=== PATIENT | female | born 1960 | race Caucasian/White ===

== ENCOUNTER 2020-05-14 08:09 | Emergency (ER) | payer OTHER, SELFPAY ==
[2020-05-14 08:10] VITALS: BP 148/87; PULSE 84; RESP 16; TEMP 36.4; O2SAT 100; BMI 26.6
--- NOTE | 2020-05-14 08:25 | VDLE_ITS ---
Reason For Study: Pain RIGHT LEFT GSV is normal. CFV is compressible, spontaneous, phasic, CFV is compressible, spontaneous, phasic, competent, and demonstrates normal competent and demonstrates normal augmentation. augmentation. FV is compressible, spontaneous, phasic, competent and demonstrates normal augmentation. POP V is compressible, spontaneous, phasic, competent and demonstrates normal augmentation. T/P Trunk is compressible. PTV is compressible. RT PerV is compressible. Procedure Exam performed portable in ED. A preliminary report was called and/or faxed to Dr. Ibrahim. Interpretation Summary There is no evidence of right lower extremity deep vein thrombosis. Right great saphenous vein appears patent and compressible segmentally. Normal flow patterns left common femoral vein. Ordering Physician: Chalino Ibrahim Performed By: Laurie Pinedo, KATY, RVT
--- NOTE | 2020-05-14 08:26 | ED.VIS.LOWEX ---
History of Present Illness Chief Complaint: Lower Extremity Injury Detail of Chief Complaint: pain right leg Informant: Patient Onset: Days - several Context: Sudden Onset - can't remember context; doesn't remember injuring it Timing: Continuous Quality of Pain: Aching Location: anterior right lower leg Current Severity: Severe Maximum Severity: Severe Worsened by: walking Relieved by: remaining still Associated Symptoms: Negative for: Parasthesia, Weakness, Loss of Funtion Narrative: Patient has had progressively worsening pain in her right baig. She states she works for the local [employer] and is on her feet doing a lot of walking back and forth and pushing and pulling things all night. She does not member injuring this. She admits she is having some swelling in both of her legs but it has been chronic and she notes no changes recently. She denies any fevers, chills, chest pain, shortness of breath, no history of DVT or PE, no history of recent long travel/immobilization/hospitalization/surgery. She denies any redness or skin changes or wounds. She states it is really unusual, the pain kind of has come out of nowhere and gotten worse. Past Medical History - Allergies and Home Meds Allergies/Adverse Reactions: Allergies No Known Allergies Allergy (Verified 05/14/20 08:10) Primary Care Physician: Care Physician,No Primary [Primary Care Provider] - Past Medical History: None Smoking Status: Never smoker Drugs: None Review of Systems General: Denies: Chills, Fever, Sweats Eyes: Denies: Visual changes - bilaterally, Diplopia ENT: Denies: Rhinorrhea, Sore throat Cardiovascular: Denies: Chest pain, Palpitations Respiratory: Denies: Dyspnea, Cough, Dyspnea on exertion Gastrointestinal: Denies: Abdominal pain, Nausea, Vomiting, Diarrhea, Melena, Hematochezia Genitourinary: Denies: Dysuria, Hematuria, Frequency Musculoskeletal: Reports: Swelling, Extremity Pain. Denies: Back pain Skin: Denies: Rash, Wounds Neurological: Denies: Headache, Weakness, Numbness Physical Exam Vital Signs/Narrative: Vital Signs Temp Pulse Resp BP Pulse Ox 05/14/20 08:10 97.5 F L 84 16 148/87 H 100 Inital Vital Signs reviewed: Yes - Extremity Exam Right Knee: Negative for: Limited ROM Right Tib fib: - - Very tender right distal tibia including medial aspect. Pain worsens with active dorsiflexion of the foot. It does not worsen when I passively stretch the anterior compartment with plantarflexion of the foot. The overlying skin is normal-appearing throughout the right lower extremity. Right Ankle: Negative for: Limited ROM General: Well nourished, Well developed, - Head: Normocephalic, Atraumatic Eyes: Perrl, EOMI Cardiovascular: - - 2+/4 bilateral posterior tibial pulses Skin: Normal color, No rash, No Trauma, - - No palpable subcutaneous emphysema right lower extremity. No wounds or nidus for infection. Normal-appearing skin right lower extremity and contralateral left lower extremity. Neurological: Alert, Oriented x3, Cranial nerves II-XII grossly intact, Normal Strength, Normal Sensation Psychological: Normal affect, Normal Mood Diagnostic/Tx/Re-eval - Medical Decision Making Venous Doppler ultrasound of the right lower extremity was obtained and was normal, unremarkable. In discussing with the electronics technician, she did not see anything else unusual that could explain the patient's pain. I obtained x-rays as well, on my interpretation 2 view showed no bony abnormality and no subcutaneous air/gas to suggest some type of necrotizing infection. Visual inspection is unremarkable. Her compartments are all soft, and she does not have any signs or symptoms of compartment syndrome. I suspect that this is some type of overuse injury, the differential includes muscular, tendon, ligament injury, stress fracture, unable to exclude small tears as well which I discussed with the patient. Prior to discharge in discussing all of this, she states it seems to be hurting more in her calf muscle when she dorsiflexes, on exam it was more anterior compartment pain that she was having when she dorsiflex but consistent with the absence of compartment syndrome, she did not have significant anterior compartment pain with passive stretch of it. I reassured her, gave her crutches so that she can more easily rested and continue to go to work, will place her on anti-inflammatories and advised close outpatient follow-up. She does not have a primary care doctor so I referred her to the next doctor on the unassigned list. ED Disposition - Plan for ED Patient: Disposition: Home or Assisted Living Diagnosis: Musculoskeletal pain of right lower extremity Instructions: ED Muscle Strain, Extremity Prescriptions: Naproxen [Naprosyn] 500 mg PO BID PRN #20 tablet Prescription Printed Referrals: Jaun Kumar MD [NON-STAFF] - 1 Week if not improving
--- NOTE | 2020-05-14 08:58 | RAD_ITS ---
STUDY: X-RAY - RIGHT TIBIA AND FIBULA REASON FOR EXAM: Female, 59 years old. Right lower leg pain starting yesterday. Pain is in the baig area. No known injury. TECHNIQUE: 2 view(s) of the tibia and fibula were obtained. COMPARISON: None. FINDINGS: Normal visualized tibia. Normal visualized fibula. The soft tissue structures are unremarkable. RAD/Tibia & Fibula 2 Views IMPRESSION: Normal x-ray examination of the tibia and fibula. Electronically Signed: Jean Figueroa MD at 9:42 EDT , Service support ,
[2020-05-14] MEDS: Naproxen 500 MG Tablet PO (10:13)
== END 2020-05-14 10:14 | disposition home or self-care (01) ==
PROVIDERS: Emergency Provider Emergency Medicine
DX: M79.661 Pain in right lower leg (principal); M79.89 Other specified soft tissue disorders
CPT/HCPCS: 73590; 93971; 99284

== ENCOUNTER 2022-05-19 14:21 | Emergency (ER) | payer OTHER, SELFPAY ==
[2022-05-19 14:22] VITALS: BP 179/88; PULSE 91; RESP 18; TEMP 36.6; O2SAT 99; BMI 27.5
--- NOTE | 2022-05-19 14:24 | EKG12_ITS ---
Test Reason : CP Blood Pressure : / mmHG Vent. Rate : 082 BPM Atrial Rate : 082 BPM P-R Int : 176 ms QRS Dur : 082 ms QT Int : 374 ms P-R-T Axes : 055 -05 043 degrees QTc Int : 436 ms Poor data quality, interpretation may be adversely affected Normal sinus rhythm Normal ECG Confirmed by PADDY SIDDIQUI, JOANIE ([id number]), dictionary editor CHERYLE LOZA ([id number]) on 05/21/2022 9:53:29 AM Referred By: AQUILES/JEAN-PAUL/BELLA Confirmed By:JOANIE THOMASON MD
--- NOTE | 2022-05-19 15:35 | RAD_ITS ---
STUDY: X-RAY CHEST REASON FOR EXAM: Female, 61 years old. Chest pain TECHNIQUE: Single AP portable view of the chest. COMPARISON: Comparison is made with prior study of January 05, 2017. FINDINGS: Hyperinflation. Mild degree of increased right infrahilar markings suggestive of possible early right infrahilar infiltrate. Scarring at both lung apices. There is no demonstrated pleural abnormality. Normal size heart. Normal mediastinum and macrina. Normal visualized pulmonary arteries. There is atherosclerotic tortuosity of the aortic arch and descending thoracic aorta. Normal visualized thoracic spine. Normal visualized ribs, clavicles, and shoulders. There is no demonstrated abnormality of the visualized soft tissue structures of the upper abdomen. RAD/Chest 1 View (Portable) IMPRESSION: Increased right infrahilar markings suggestive of right infrahilar infiltrate. Follow-up is recommended. Electronically Signed: Jean Figueroa MD at 15:50 EDT ,
[2022-05-19 15:48] LABS: Absolute Lymphocyte Count 1.58 X10^3/uL (0.83-4.51); Absolute Neutrophil Count 3.2 X10^3/uL (2.0-7.7); Basophil# 0.05 X10^3/uL; Basophil% 0.9 % (0-1); Eosinophil# 0.39 X10^3/uL; Eosinophils% 6.8 % (0-5); Hematocrit 40.5 % (37-47); Hemoglobin 13.4 g/dL (12.0-15.0); Lymphocyte # 1.58 X10^3/ul (0.83-4.51); Lymphocyte % 27.7 % (19-41); Mean Corp Hgb Conc 33.1 g/dL (32-36); Mean Corpuscular Hgb 30.5 pg (27.0-32.0); Mean Corpuscular Volume 92.3 fL (81-99); Mean Platelet Vol. 9.2 fl (6.2-12.0); Monocyte# 0.46 X10^3/uL; Monocyte% 8.1 % (0-10); NRBC Flagged by Analyzer 0 % (0-5); Neutrophil # 3.21 X10^3/uL (2.7-7.7); Neutrophil % 56.3 % (47-70); Platelet Count 413 K/mm3 (150-450); RBC Distribution Width CV 13.3 % (11.6-14.6); RBC Distribution Width SD 45.2 fl (35.1-43.9); Red Blood Count 4.39 M/mm3 (4.2-5.4); White Blood Count 5.7 K/mm3 (4.4-11.0)
[2022-05-19 16:06] LABS: Anion Gap 3 (5-15); BUN 11 mg/dL (7-18); BUN/Creat Ratio 20.7 RATIO (10-20); Calcium,Total 9.4 mg/dL (8.5-10.1); Chloride 107 mmol/L (98-107); Creatinine, Serum 0.53 mg/dL (0.55-1.02); EST Glomerular Filtration Rate 124 mL/min (>60); Est Glom Filt Rate - Afr Amer 150 mL/min (>60); Glucose 96 mg/dL (74-106); Potassium 3.9 mmol/L (3.5-5.1); Sodium Level 138 mmol/L (136-145); Troponin-I HS 5 pg/mL (3.0-54.0)
--- NOTE | 2022-05-19 16:50 | ED.VIS.CHEST ---
HPI History of Present Illness Chief Complaint: Chest Pain Informant: patient Onset/Context/Timing Onset: Today and Hours Activity at onset: sudden Timing: Continuous Quality: Positive for Pressure Location: Right Chest Worsened By: Nothing Relieved By: Nothing Associated Symptoms: Positive for Cough; Negative for Nausea, Vomiting, Diaphoresis, Dyspnea, Fever, Lightheadedness, Acid Reflux or Palpitations Narrative Narrative: Patient presents with chest pain that began today. Patient states it came on gradually today at work. Patient describes the pain as a pressure. Patient states the pain is over the right side of her chest. Patient states it is worse with coughing. Patient states it has been constant for the past few hours. Patient admits to a mild cough. Patient denies any sputum production. Patient denies any fevers or chills. Patient denies any shortness of breath. Patient denies any nausea or vomiting. Patient denies any diaphoresis. Patient denies any palpitations. Patient denies any cardiac or PE risk factors. CVD Risk Factors: Negative for Hypertension, Diabetes, Hypercholesterolemia, Family History 1' </=55 or Smoking PE Risk Factors: Negative for Recent Travel/Surgery, Recent Immobilization, Prior DVT or PE, Cancer or OCP + Smoking + >/=35 PFSH PFSH Medical History no medical history no medical history Home Medications azithromycin 250 mg tablet 250 mg PO DAILY #4 TABLETS 05/19/22 [Rx Last Taken Unknown] Allergy/AdvReac Type Severity Reaction Status Date / Time No Known Allergies Allergy Verified 05/19/22 14:24 Surgical History no surgical history no surgical history Social History Smoking Status: Never smoker ROS ROS ED Constitutional Constitutional ED: Denies chills or fever(s) Eyes Eyes: Denies blurry vision or change in vision ENT ENT ED: Denies rhinorrhea or sore throat Cardiovascular Cardiovascular: Reports chest pain and palpitations Respiratory/Chest Respiratory/Chest: Reports cough and dyspnea Gastrointestinal Gastrointestinal: Reports nausea; Denies abdominal pain or vomiting Genitourinary Genitourinary ED: Denies dysuria or hematuria Musculoskeletal Musculoskeletal: Denies back pain or neck pain Integumentary Denies abscess or rash Neurologic Neurologic: Denies headache(s) or weakness Allergic/Immunologic Allergic/Immunologic ED: Denies mouth swelling or urticaria EXAM Physical Exam Const Vital Signs: 05/19/22 14:22 03/27/23 16:55 05/19/22 16:57 Temperature 97.8 F Temperature Source Temporal Pulse Rate 91 75 Respiratory Rate 18 16 Respiratory Effort Blood Pressure 179/88 H 141/73 H Blood Pressure Mean 118 95 Pulse Ox 99 99 99 Oxygen Delivery Method Room Air Room Air Room Air 05/19/22 16:57 Temperature Temperature Source Pulse Rate Respiratory Rate Respiratory Effort Normal Non-Labored Blood Pressure Blood Pressure Mean Pulse Ox Oxygen Delivery Method Positive well nourished, well developed and obese General Appearance ED: well developed Nutritional Appearance: obese HEENT normocephalic and atraumatic Eyes PERRL and EOMs intact bilaterally Neck supple and no JVD Chest Wall palpation of chest normal Chest: tenderness pectoral muscle right Resp normal respiratory effort and clear to auscultation bilaterally Effort and Inspection: Negative for respiratory distress Cardio regular rate, regular rhythm and no murmurs GI normal to inspection, nondistended, normoactive bowel sounds, soft to palpation, non-tender and non-distended Extremity normal to inspection General Extremety ED: Negative for edema or tenderness General Extremity: Negative for edema Neuro oriented x3, CN's II-XII intact bilaterally and no sensory deficits noted Sensorium / Orientation: awake and alert Motor Exam: strength 5/5 throughout Psych mental status grossly normal MDM MDM MDM Narrative Medical decision making narrative: Differential diagnosis includes cardiac ischemia, cardiac dysrhythmia, musculoskeletal chest pain, pneumonia, pneumothorax, and bronchitis. Patient is not tachycardic or tachypneic. Patient has a Wells score of 0. I do not think this is from a pulmonary embolism. EKG will be obtained to assess for cardiac ischemia and cardiac dysrhythmia. Chest x-ray will be obtained to assess for pneumonia and pneumothorax. CBC will be obtained to assess for leukocytosis and anemia. Basic metabolic profile will be obtained to assess for electrolyte abnormality and renal function. High-sensitivity troponin will be obtained to assess for cardiac ischemia. Lab Data Attestation: I reviewed the patient's lab results. Lab results narrative: CBC was reviewed and was within normal limits. Basic metabolic profile was reviewed and was within normal limits. High-sensitivity troponin was reviewed and was normal at 5. Labs: Laboratory Results - last 24 hr 05/19/22 05/19/22 15:30 15:30 WBC 5.7 RBC 4.39 Hgb 13.4 Hct 40.5 MCV 92.3 MCH 30.5 MCHC 33.1 RDW Std Deviation 45.2 H RDW Coeff of Halina 13.3 Plt Count 413 MPV 9.2 Immature Gran % (Auto) 0.200 Neut % (Auto) 56.3 Lymph % (Auto) 27.7 [place] % (Auto) 8.1 Eos % (Auto) 6.8 H Baso % (Auto) 0.9 Absolute Neuts (auto) 3.2 Absolute Lymphs (auto) 1.58 Nucleated RBC % 0 Sodium 138 Potassium 3.9 Chloride 107 Carbon Dioxide 28.0 Anion Gap 3 L BUN 11 Creatinine 0.53 L Estim Creat Clear Calc 100.30 Est GFR (MDRD) Af Amer 150 Est GFR (MDRD) Non-Af 124 BUN/Creatinine Ratio 20.7 H Glucose 96 Calcium 9.4 Troponin I High Sens 5 Radiography Diagnostic Testing: Clinical Impression(s) from Imaging Studies Chest X-Ray 05/19/22 15:35 IMPRESSION: Increased right infrahilar markings suggestive of right infrahilar infiltrate. Follow-up is recommended. Electronically Signed: Jean Figueroa MD at 15:50 EDT , X-ray of the chest was obtained. There is 1 view. On my independent interpretation, there is a right middle lobe infiltrate. Bony thorax is normal. There is no cardiomegaly noted. Radiologist also interpreted the x-ray and agrees. EKG Initial EKG: Attestation: I personally reviewed and interpreted this EKG as follows: Interpretation: Sinus Rhythm (82) and No Acute Injury Pattern Prior EKG tracings: available for review Prior: Unchanged (01/05/2017) Treatment and Re-Evaluation :: Patient was advised of her findings. Patient was given a dose of Zithromax here. Patient was given a prescription for Zithromax. Patient was instructed to follow-up with her primary care physician in 5 to 7 days for reevaluation. Patient understood and was agreeable with the plan. All questions were answered. Discharge Plan Triage Chief Complaint: Chest Pain ED Provider: Gerson Chapa Dx/Rx/DC Orders Clinical Impression: Community acquired pneumonia, Right-sided chest pain Instructions: ED Pneumonia (Adult) Prescriptions: New azithromycin [azithromycin] 250 mg tablet 250 mg PO DAILY Qty: 4 0RF Primary Care Provider: Care Physician,No Primary Referrals: Janet Cordero DO [Med Staff - [employer]] - 5-7 Days Care Physician,No Primary [Primary Care Provider] - Disposition Disposition: Home, Self Care
[2022-05-19 16:55] VITALS: BP 141/73; PULSE 75; RESP 16; O2SAT 99
[2022-05-19 16:57] VITALS: O2SAT 99
[2022-05-19 17:17] VITALS: BP 144/76; PULSE 63; RESP 15
[2022-05-19] MEDS: Azithromycin 250 MG Tablet 500 MG PO (17:22)
== END 2022-05-19 17:23 | disposition home or self-care (01) ==
PROVIDERS: Emergency Provider Emergency Medicine; Visit Provider Emergency Medicine
DX: J18.9 Pneumonia, unspecified organism (principal); R07.89 Other chest pain; E66.9 Obesity, unspecified; Z68.27 Body mass index [BMI] 27.0-27.9, adult
CPT/HCPCS: 71045; 80048; 84484; 85025; 93005; 99284

== ENCOUNTER 2025-02-12 15:44 | Emergency (ER) | payer OTHER, SELFPAY ==
[2025-02-12 15:45] VITALS: BP 137/81; BP 166/83; PULSE 75; PULSE 88; RESP 16; RESP 18; TEMP 35.7; O2SAT 98; O2SAT 99
[2025-02-12 15:47] VITALS: BMI 29.7
--- NOTE | 2025-02-12 16:02 | CT_ITS ---
PROCEDURE: ABDOMEN/PELVIS WITHOUT CONT 02/12/2025 REASON FOR EXAM: RIGHT FLANK PAIN TECHNIQUE: Procedure Code: CTABDPEL Modality: CT Procedure: ABDOMEN/PELVIS WITHOUT CONT Noncontrast technique limits evaluation of the abdominal and pelvic viscera. Coronal and Sagittal reconstruction series were provided. One or more dose reduction techniques were used (e.g., Automated exposure control, adjustment of the mA and/or kV according to patient size, use of iterative reconstruction technique). RADIATION DOSE SUMMARY: CTDlvol: 10.51 mGy DLP: 522.28 mGycm COMPARISON: None. FINDINGS: Lung bases: Clear. Liver: Unremarkable. Gallbladder: Cholelithiasis. No biliary dilation. Spleen: Unremarkable. Pancreas: Unremarkable. Adrenals: Unremarkable. Kidneys: Punctate stones in the kidney measure up to 2 mm. No hydronephrosis. Bladder: Unremarkable. Reproductive Organs: Unremarkable. Bowel: No bowel thickening. No bowel obstruction. Appendix: Normal. Lymph nodes: No lymphadenopathy. Vasculature: No aneurysm. Peritoneum / Retroperitoneum: No free air or free fluid. Bones: No acute bony abnormalities. CT/Abdomen/Pelvis without Cont IMPRESSION: Punctate stones in the kidney measure up to 2 mm. No hydronephrosis. Reading [facility]
--- NOTE | 2025-02-12 16:03 | EX.ED.DYSGE1 ---
HPI History of Present Illness Chief Complaint: Flank Pain Detail of Chief Complaint: Flank pain/back pain Informant: patient Onset/Context/Timing Onset: Yesterday Current Severity: 09/01 Narrative Narrative: Patient presents to the emergency department with complaint of low back pain and right flank pain that started yesterday and was mild initially. She thought it was from getting ready for [employer]. She denies any heavy lifting or injury to her back. Denies any pain down the legs. Denies any significant abdominal pain. She states that this reminds her of last time she had urinary tract infection although she is not having any dysuria or urgency or frequency. She has had no hematuria. Pain is continuous but waxes and wanes in intensity and currently rates it a 7 out of 10. She has had no nausea or vomiting. She denies fever. She has remote history of a kidney stone years ago. [facility] Medical History (Updated 02/12/25 @ 17:[address] Rylee Dubose, DO) Kidney stones Non-smoker Migraines Home Medications ?Medication ?Instructions ?Recorded ?Last Taken ?Type azithromycin 250 mg tablet 250 mg PO DAILY #4 TABLETS 05/19/22 Unknown Rx cyclobenzaprine 10 mg tablet 10 mg PO TID PRN Muscle Spasm #20 02/12/25 Unknown Rx TABLETS hydrocodone-acetaminophen 5-325mg 1 tab PO Q4H PRN PRN Pain 2 days 02/12/25 Unknown Rx 5mg-325mg #10 TABLETS Allergy/AdvReac Type Severity Reaction Status Date / Time No Known Allergies Allergy Verified 02/12/25 15:46 Social History Smoking Status: Never smoker ROS ROS ED Review of Systems ROS Unobtainable: other Constitutional Constitutional ED: Reports lethargy; Denies chills, fever(s), sweats or weight loss Eyes Eyes: Denies blurry vision, change in vision or diplopia ENT ENT ED: Denies rhinorrhea or sore throat Cardiovascular Cardiovascular: Denies chest pain, orthopnea or racing heartbeat Respiratory/Chest Respiratory/Chest: Denies cough, dyspnea, dyspnea on exertion, orthopnea or sputum Gastrointestinal Gastrointestinal: Denies abdominal pain, diarrhea, nausea or vomiting Genitourinary Genitourinary ED: Denies dysuria, hematuria or urinary frequency Musculoskeletal Musculoskeletal: Reports back pain; Denies arthralgias, myalgias or neck pain Integumentary Denies abscess, Abrasions or rash Neurologic Neurologic: Denies headache(s) or weakness Psychiatric Psychiatric: Denies anxiety, depression or suicidal thoughts Endocrine Endocrinology: Denies polydipsia, polyphagia or polyuria Hematologic/Lymphatic Hematologic/Lymphatic: Denies easy bleeding, easy bruising or lymphadenopathy Allergic/Immunologic Allergic/Immunologic ED: Denies mouth swelling, tongue swelling or urticaria EXAM Physical Exam Const Vital Signs: 02/12/25 15:45 02/12/25 15:45 Temperature 96.3 F L Temperature Source Temporal Pulse Rate 88 75 Respiratory Rate 16 18 Blood Pressure 166/83 H 137/81 H Blood Pressure Mean 110 99 Pulse Ox 99 98 Oxygen Delivery Method Room Air Room Air Positive well nourished and well developed General Appearance ED: well developed and NAD HEENT Reports TM's clear and moist mucous membranes normocephalic and atraumatic; Negative for trauma or tenderness Tympanic Membrane ED: Yes TM's clear Eyes PERRL and EOMs intact bilaterally General Eye ED: Negative for pale conjunctiva or scleral icterus Neck no lymphadenopathy, supple and no JVD General: Negative for tenderness Chest Wall inspection of chest normal and palpation of chest normal Chest: Negative for tenderness Resp normal respiratory effort and clear to auscultation bilaterally Effort and Inspection: Negative for respiratory distress or pain with movement Auscultation: Negative for rhonchi, wheezes or diminished lung sounds Cardio regular rate, regular rhythm, S1 normal heart sound, S2 normal heart sound and no murmurs Peripheral Pulses: pulses 2+ throughout GI normal to inspection, nondistended, normoactive bowel sounds, soft to palpation, non-tender, non-distended and no masses Back/Spine no thoracic nor lumbar tenderness; Negative for no CVA tenderness Back/Spine Narrative: Mild CVA tenderness on the right. No erythema or warmth noted to her back. No evidence of trauma to her back. Negative straight leg raises. Deep tendon reflexes plus 2 out of 4 bilaterally at the patella and Achilles. She has normal 5 extension bilaterally Extremity normal to inspection General Extremety ED: Negative for edema General Extremity: Negative for edema Neuro oriented x3, CN's II-XII intact bilaterally, no sensory deficits noted and gait normal Sensorium / Orientation: awake, alert, oriented to person, oriented to place and oriented to time Motor Exam: strength 5/5 throughout and strength abnormal Psych mental status grossly normal Skin no rashes or lesions noted and no wounds MDM MDM MDM Narrative Medical decision making narrative: Patient presents with lower back pain that started gradually. At times more consistent to the right side but does have pain across both sides of her back. She states she has felt similarly in the past and had a UTI but has no UTI symptoms currently. Likely she looks well. The pain is somewhat positional with time certain movements do make it worse. She has no radiculopathy type symptoms. IV line established. She has been given Toradol. CBC with differential obtained showed a white count of 6.7 with hemoglobin of 13.5 and platelet count of 320. Chemistries unremarkable. BUN was 18 and creatinine 0.47. Urinalysis negative for infection. I did obtain a CT scan of the abdomen pelvis without contrast that showed no evidence of acute process. She had a small 2 mm calculus in the right kidney but no urolithiasis or hydronephrosis or hydroureter. At this point she will be discharged to home. Suspect likely musculoskeletal back pain. Will write a prescription for a few [place] and Flexeril. Advised to follow-up with primary care physician within next 3 to 5 days Lab Data Attestation: I reviewed the patient's lab results. Labs: Laboratory Results - last 24 hr 02/12/25 02/12/25 15:52 16:08 WBC 6.7 RBC 4.35 Hgb 13.5 Hct 39.9 MCV 91.7 MCH 31.0 MCHC 33.8 RDW Std Deviation 42.1 RDW Coeff of Halina 12.6 Plt Count 320 MPV 9.4 Immature Gran % (Auto) 0.300 Neut % (Auto) 61.7 Lymph % (Auto) 21.7 [place] % (Auto) 8.9 Eos % (Auto) 6.7 H Baso % (Auto) 0.7 Absolute Neuts (auto) 4.2 Absolute Lymphs (auto) 1.46 Nucleated RBC % 0 Sodium 143 Potassium 3.7 Chloride 107 Carbon Dioxide 24.9 Anion Gap 12 BUN 16 Creatinine 0.47 L Estim Creat Clear Calc 127.29 Est GFR (MDRD) Non-Af 106 BUN/Creatinine Ratio 33.0 H Glucose 123 H Calcium 9.5 Urine Color Yellow Urine Clarity Clear Urine pH 6.0 Ur Specific [place] 1.020 Urine Protein 30 H Urine Glucose (UA) Normal Urine Ketones Negative Urine Occult Blood 25 H Urine Nitrite Negative Urine Bilirubin Negative Urine Urobilinogen Normal Ur Leukocyte Esterase 25 H Urine RBC 0-5 SEEN Urine WBC 0-5 SEEN Ur Squamous Epith Cells 0-5 SEEN Amorphous Sediment 1+ Urine Bacteria RARE Urine Mucus 0 SEEN Radiography Diagnostic Testing: Clinical Impression(s) from Imaging Studies Abdomen/Pelvis CT 02/12/25 16:02 IMPRESSION: Punctate stones in the kidney measure up to 2 mm. No hydronephrosis. Reading Location: [facility] Discharge Plan Triage Chief Complaint: Flank Pain ED Provider: Rylee Dubose Dx/Rx/DC Orders Clinical Impression: Back pain Instructions: ED Back Pain (Acute or Chronic) Prescriptions: New hydrocodone-acetaminophen 5-325 mg tablet 1 tab PO Q4H PRN PRN (Reason: Pain) 2 Days Qty: 10 0RF cyclobenzaprine 10 mg tablet 10 mg PO TID PRN (Reason: Muscle Spasm) Qty: 20 0RF No Action azithromycin [azithromycin] 250 mg tablet 250 mg PO DAILY Qty: 4 0RF Primary Care Provider: Care Physician,No Primary Referrals: Care Physician,No Primary [Primary Care Provider, Medical] Print Language: Greek Disposition Disposition: Home, Self Care
[2025-02-12 16:21] LABS: Mucous, Urine 0 SEEN /hpf (<or=2+)
[2025-02-12 16:24] LABS: Hematocrit 39.9 % (37-47); Hemoglobin 13.5 g/dL (12.0-15.0); Immature Granulocytes Count 0.020 X10^3/uL (0.0-0.0); Mean Corp Hgb Conc 33.8 g/dL (32-36); Mean Corpuscular Volume 91.7 fL (81-99); Mean Platelet Vol. 9.4 fl (6.2-12.0); NRBC Flagged by Analyzer 0 % (0-5); Platelet Count 320 K/mm3 (150-450); RBC Distribution Width CV 12.6 % (11.6-14.6); RBC Distribution Width SD 42.1 fl (35.1-43.9); Red Blood Count 4.35 M/mm3 (4.2-5.4); White Blood Count 6.7 K/mm3 (4.4-11.0)
[2025-02-12 16:26] LABS: Color, Urine Yellow (Yellow); Glucose, Dipstick Normal (Normal); Ketone-Dipstick Negative (Negative); Leukocyte Esterase-Dipstick 25 /ul (Negative); Nitrite-Dipstick Negative (Negative); Occult Blood-Urine 25 /ul (Negative); Protein-Dipstick 30 mg/dl (Negative); Specific Gravity, Urine 1.020 (1.002-1.030); Urine Bilirubin Dipstick Negative (Negative)
--- OUTSIDE RECORDS SUMMARY | 2025-02-12 16:34 | XMS RPT_ITS | CCD ---
Author Organization [facility] Inform ion Partnership [facility] Care Team Providers Care Patient Admitting Representative Name Role Phone Gerson Chapa Attending [facility] Care Physician, No Primary Primary Care Unava ilable Problems Problem Classification Problem Date Documented Da te Episodic/Chronic Nonspecific chest pain (1 source) Chest pain, unspecified; Translations: [Chest pain, unspecified] Onset: 05-25-2022 Episodic Results Test Name Value Interpretation Reference Range Facil ity 12 Lead EKGon 05-19-2022 12 Lead EKG [facility] [address] [place] [address] 12 Lead EKG 05/19/22 1426 MR#: [id number] Acct: [id number] Name: ALLYN MARTINEZ Rep #: [id number] : 1960 61 From: Manolo Thomason MD Attending Dr: Status: DEP ER Ordering Dr: Provider,Melchor P. Date: 05/19/22 Location: ED Sex: F C Admitted: Test Reason : CP Blood Pressure : / mmHG Vent. Rate : 082 BPM Atrial Rate : 082 BPM P-R Int : 176 ms QRS Dur : 082 ms QT Int : 374 ms P-R-T Axes : 055 -05 043 degrees QTc Int : 436 ms Poor data quality, interpretation may be adversely affected Normal sinus rhythm Normal ECG Confirmed by MANOLO THOMASON MD ([id number]), supervising editor trailer CHERYLE LOZA ([id number]) on 05/21/2022 9:53:29 AM Referred By: AQUILES/JEAN-PAUL/BELLA Confirmed By:MANOLO THOMASON MD 05/21/22 0953 Date Manolo Thomason MD CC: Dr. Gerson Chapa, DO; ED PHYSICIAN PROVIDER; No Primary Care Physician Signed Normal [facility] Basic Metabolic Profile (BMP )on 05-19-2022 BUN/CRE 20.7 RATIO High 10-20 [facility] Comment on above: Order Comment: 'TROP ' Serial specimen #1, #2 or #3: 1 Performed By: #### L 500.2500, L100.0100, L501.4020 #### [facility] [address], [address] CA,Total 9.4 mg/dL Normal 8.5-10.1 [facility] Comment on above: Order Comment: 'TROP ' Serial specimen #1, #2 or #3: 1 Performed By: #### L 500.2500, L100.0100, L501.4020 #### [facility] [address] [place], [address] Chloride [Moles/Vol] 107 mmol/L Normal 98-107 [facility] Comment on above: Order Comment: 'TROP ' Serial specimen #1, #2 or #3: 1 Performed By: #### L 500.2500, L100.0100, L501.4020 #### [facility] [address] [place], [address] CO2 [Moles/Vol] 28.0 mmol/L Normal 21.0-32.0 [facility] Comment on above: Order Comment: 'TROP ' Serial specimen #1, #2 or #3: 1 Performed By: #### L 500.2500, L100.0100, L501.4020 #### [facility] [address] [place], [address] Creatinine [Mass/Vol] 0.53 mg/dL Low 0.55-1.02 [facility] Comment on above: Order Comment: 'TROP ' Serial specimen #1, #2 or #3: 1 Result Comment: The validity of the calculated GFR GFRAA in patients over 70 years has not been determined. Clinical correlation is essential. Performed By: #### L 500.2500, L100.0100, L501.4020 #### [facility] [address] [place], [address] ECRCL 100.30 ml/min Normal [facility] Comment on above: Order Comment: 'TROP ' Serial specimen #1, #2 or #3: 1 Performed By: #### L 500.2500, L100.0100, L501.4020 #### [facility] [address] [place], [address] EST GFR - AA 150 mL/min Normal >60 [facility] Comment on above: Order Comment: 'TROP ' Serial specimen #1, #2 or #3: 1 Result Comment: Afri can Egyptian GFR Calc Performed By: #### L 500.2500, L100.0100, L501.4020 #### [facility] [address] [place], [address] GAP 3 Low 5-15 [facility] Comment on above: Order Comment: 'TROP ' Serial specimen #1, #2 or #3: 1 Performed By: #### L 500.2500, L100.0100, L501.4020 #### [facility] [address] [place], [address] GFR/1.73 sq M.predicted among non-blacks MDRD (S/P/Bld) [Vol rate/Area] 124 mL/min/{1.73_m2} Normal >60 [facility] Comment on above: Order Comment: 'TROP ' Serial specimen #1, #2 or #3: 1 Result Comment: Non- GFR Calc Performed By: #### L 500.2500, L100.0100, L501.4020 #### [facility] [address] [place], [address] Glucose [Mass/Vol] 96 mg/dL Normal 74-106 [facility] Comment on above: Order Comment: 'TROP ' Serial specimen #1, #2 or #3: 1 Performed By: #### L 500.2500, L100.0100, L501.4020 #### [facility] [address] [place], [address] Potassium [Moles/Vol] 3.9 mmol/L Normal 3.5-5.1 [facility] Comment on above: Order Comment: 'TROP ' Serial specimen #1, #2 or #3: 1 Performed By: #### L 500.2500, L100.0100, L501.4020 #### [facility] [address] [place], [address] Sodium [Moles/Vol] 138 mmol/L Normal 136-145 [facility] Comment on above: Order Comment: 'TROP ' Serial specimen #1, #2 or #3: 1 Performed By: #### L 500.2500, L100.0100, L501.4020 #### [facility] [address] [place], [address] Urea nitrogen [Mass/Vol] 11 mg/dL Normal 7-18 [facility] Comment on above: Order Comment: 'TROP ' Serial specimen #1, #2 or #3: 1 Performed By: #### L 500.2500, L100.0100, L501.4020 #### [facility] [address] [place], [address] CBC W/Diff, Automatedon 03-2 Absolute Lymph 1.58 X10 3/uL Normal 0.83-4.51 [facility] Comment on above: Performed By: #### L 500.2500, L100.0100, L501.4020 #### [facility] [address] [place], [address] Absolute Neut 3.2 X10 3/uL Normal 2.0-7.7 [facility] Comment on above: Performed By: #### L 500.2500, L100.0100, L501.4020 #### [facility] [address] [place], [address] Basophils/100 WBC (Bld) 0.9 % Normal 0-1 [facility] Comment on above: Performed By: #### L 500.2500, L100.0100, L501.4020 #### [facility] [address] [place], [address] Eosinophils/100 WBC (Bld) 6.8 % High 0-5 [facility] Comment on above: Performed By: #### L 500.2500, L100.0100, L501.4020 #### [facility] [address] [place], [address] Erythrocyte distribution width (RBC) [Ratio] 13.3 % Normal 11.6-14.6 [facility] Comment on above: Performed By: #### L 500.2500, L100.0100, L501.4020 #### [facility] [address] [place], [address] Hematocrit (Bld) [Volume fraction] 40.5 % Normal 37-47 [facility] Comment on above: Performed By: #### L 500.2500, L100.0100, L501.4020 #### [facility] [address] [place], [address] Hemoglobin (Bld) [Mass/Vol] 13.4 g/dL Normal 12.0-15.0 [facility] Comment on above: Performed By: #### L 500.2500, L100.0100, L501.4020 #### [facility] [address] [place], [address] IG% 0.200 Normal 0.0-0.9 [facility] Comment on above: Result Comment: IG% - Immature Granulocytes (promyelocytes, myelocytes and metamyelocytes) > 1% indicates that a LEFT SHIFT is Present. Performed By: #### L 500.2500, L100.0100, L501.4020 #### [facility] [address] [place] [place], [address] Lymphocytes/100 WBC (Bld) 27.7 % Normal 19-41 [facility] Comment on above: Performed By: #### L 500.2500, L100.0100, L501.4020 #### [facility] [address] [place], [address] MCH (RBC) [Entitic mass] 30.5 pg Normal 27.0-32.0 [facility] Comment on above: Performed By: #### L 500.2500, L100.0100, L501.4020 #### [facility] [address] [place], [address] MCHC (RBC) [Mass/Vol] 33.1 g/dL Normal 32-36 [facility] Comment on above: Performed By: #### L 500.2500, L100.0100, L501.4020 #### [facility] [address] [place], [address] MCV (RBC) [Entitic vol] 92.3 fL Normal 81-99 [facility] Comment on above: Performed By: #### L 500.2500, L100.0100, L501.4020 #### [facility] [address] [place], [address] Monocytes/100 WBC (Bld) 8.1 % Normal 0-10 [facility] Comment on above: Performed By: #### L 500.2500, L100.0100, L501.4020 #### [facility] [address] [place], [address] Neutrophils/100 WBC (Bld) 56.3 % Normal 47-70 [facility] Comment on above: Performed By: #### L 500.2500, L100.0100, L501.4020 #### [facility] [address] [place] [place], [address] Nucleated RBC (Bld) [#/Vol] 0 10*3/uL Normal 0-5 [facility] Comment on above: Performed By: #### L 500.2500, L100.0100, L501.4020 #### [facility] [address] [place], [address] Platelet mean volume (Bld) [Entitic vol] 9.2 fL Normal 6.2-12.0 [facility] Comment on above: Performed By: #### L 500.2500, L100.0100, L501.4020 #### [facility] [address] [place], [address] Platelets (Bld) [#/Vol] 413 10*3/uL Normal 150-450 [facility] Comment on above: Performed By: #### L 500.2500, L100.0100, L501.4020 #### [facility] [address] [place], [address] RBC (Bld) [#/Vol] 4.39 10*6/uL Normal 4.2-5.4 [facility] Comment on above: Performed By: #### L 500.2500, L100.0100, L501.4020 #### [facility] [address] [place], [address] RDW SD 45.2 fl High 35.1-43.9 [facility] Comment on above: Performed By: #### L 500.2500, L100.0100, L501.4020 #### [facility] [address] [place], [address] WBC (Bld) [#/Vol] 5.7 10*3/uL Normal 4.4-11.0 [facility] Comment on above: Performed By: #### L 500.2500, L100.0100, L501.4020 #### [facility] [address] [place], [address] Chest 1 View (Portable)on Chest 1 View (Portable) [facility] Services [address] [place] [address] Chest 1 View (Portable) MR#: [id number] Acct: [id number] Name: ALLYN MARTINEZ Rep #: [id number] : 1960 F 61 From: Jean trejo MD PCP: Care Physician,No Primary Status: PRE ER Study: Chest 1 View (Portable) Date of Exam: 05/19/22 Exam# [id number] Ordering Dr: Provider,Ed P. STUDY: X-RAY CHEST REASON FOR EXAM: Female, 61 years old. Chest pain TECHNIQUE: Single AP portable view of the chest. COMPARISON: Comparison is made with prior study of January 05, 2017. FINDINGS: Hyperinflation. Mild degree of increased right infrahilar markings suggestive of possible early right infrahilar infiltrate. Scarring at both lung apices. There is no demonstrated pleural abnormality. Normal size heart. Normal mediastinum and macrina. Normal visualized pulmonary arteries. There is atherosclerotic tortuosity of the aortic arch and descending thoracic aorta. Normal visualized thoracic spine. Normal visualized ribs, clavicles, and shoulders. There is no demonstrated abnormality of the visualized soft tissue structures of the upper abdomen. RAD/Chest 1 View (Portable) IMPRESSION: Increased right infrahilar markings suggestive of right infrahilar infiltrate. Follow-up is recommended. Electronically Signed: Jean Figueroa MD at 15:50 EDT , CC: ED PHYSICIAN PROVIDER; No Primary Care Physician Final Inspector Shuttle: Signed Normal [facility] Emergency Department Summary on 05-19-2022 Emergency Department Summary [facility] Medical Records Department [address] [place] [address] Emergency Department Summary 05/19/22 MR#: [id number] Acct: [id number] Name: ALLYN MARTINEZ Rep #: [id number] : 1960 61 From: Gerson Chapa DO PCP: Care Physician,No Primary Status:DEP ER Location: ED HPI History of Present Illness Chief Complaint: Chest Pain Informant: patient Onset/Context/Timing Onset: Today and Hours Activity at onset: sudden Timing: Continuous Quality: Positive for Pressure Location: Right Chest Worsened By: Nothing Relieved By: Nothing Associated Symptoms: Positive for Cough; Negative for Nausea, Vomiting, Diaphoresis, Dyspnea, Fever, Lightheadedness, Acid Reflux or Palpitations Narrative Narrative: Patient presents with chest pain that began today. Patient states it came on gradually today at work. Patient describes the pain as a pressure. Patient states the pain is over the right side of her chest. Patient states it is worse with coughing. Patient states it has been constant for the past few hours. Patient admits to a mild cough. Patient denies any sputum production. Patient denies any fevers or chills. Patient denies any shortness of breath. Patient denies any nausea or vomiting. Patient denies any diaphoresis. Patient denies any palpitations. Patient denies any cardiac or PE risk factors. CVD Risk Factors: Negative for Hypertension, Diabetes, Hypercholesterolemia, Family History 1' or Smoking PE Risk Factors: Negative for Recent Travel/Surgery, Recent Immobilization, Prior DVT or PE, Cancer or OCP + Smoking + >/=35 PFSH PFSH Medical History no medical history no medical history Home Medications azithromycin 250 mg tablet 250 mg PO DAILY #4 TABLETS 05/19/22 [Rx Last Taken Unknown] Allergy/AdvReac Type Severity Reaction Status Date / Time No Known Allergies Allergy Verified 05/19/22 14:24 Surgical History no surgical history no surgical history Social History Smoking Status: Never smoker ROS ROS ED Constitutional Constitutional ED: Denies chills or fever(s) Eyes Eyes: Denies blurry vision or change in vision ENT ENT ED: Denies rhinorrhea or sore throat Cardiovascular Cardiovascular: Reports chest pain and palpitations Respiratory/Chest Respiratory/Chest: Reports cough and dyspnea Gastrointestinal Gastrointestinal: Reports nausea; Denies abdominal pain or vomiting Genitourinary Genitourinary ED: Denies dysuria or hematuria Musculoskeletal Musculoskeletal: Denies back pain or neck pain Integumentary Denies abscess or rash Neurologic Neurologic: Denies headache(s) or weakness Allergic/Immunologic Allergic/Immunologic ED: Denies mouth swelling or urticaria EXAM Physical Exam Const Vital Signs: 05/19/22 14:22 05/19/22 16:55 05/19/22 16:57 Temperature 97.8 F Temperature Source Temporal Pulse Rate 91 75 Respiratory Rate 18 16 Respiratory Effort Blood Pressure 179/88 H 141/73 H Blood Pressure Mean 118 95 Pulse Ox 99 99 99 Oxygen Delivery Method Room Air Room Air Room Air 05/19/22 16:57 Temperature Temperature Source Pulse Rate Respiratory Rate Respiratory Effort Normal Non-Labored Blood Pressure Blood Pressure Mean Pulse Ox Oxygen Delivery Method Positive well nourished, well developed and obese General Appearance ED: well developed Nutritional Appearance: obese HEENT normocephalic and atraumatic Eyes PERRL and EOMs intact bilaterally Neck supple and no JVD Chest Wall palpation of chest normal Chest: tenderness pectoral muscle right Resp normal respiratory effort and clear to auscultation bilaterally Effort and Inspection: Negative for respiratory distress Cardio regular rate, regular rhythm and no murmurs GI normal to inspection, nondistended, normoactive bowel sounds, soft to palpation, non-tender and non- distended Extremity normal to inspection General Extremety ED: Negative for edema or tenderness General Extremity: Negative for edema Neuro oriented x3, CN's II-XII intact bilaterally and no sensory deficits noted Sensorium / Orientation: awake and alert Motor Exam: strength 5/5 throughout Psych mental status grossly normal MDM MDM MDM Narrative Medical decision making narrative: Differential diagnosis includes cardiac ischemia, cardiac dysrhythmia, musculoskeletal chest pain, pneumonia, pneumothorax, and bronchitis. Patient is not tachycardic or tachypneic. Patient has a Wells score of 0. I do not think this is from a pulmonary embolism. EKG will be obtained to assess for cardiac ischemia and cardiac dysrhythmia. Chest x-ray will be obtained to assess for pneumonia and pneumothorax. CBC will be obtained to assess for leukoc (more content not included)... Normal [facility] L501.4020on 05-19-2022 TROPONIN-I HS 5 pg/mL Normal 3.0-54.0 [facility] Comment on above: Order Comment: 'TROP ' Serial specimen #1, #2 or #3: 1 Result Comment: Yfn block Note: New Test Units and Gender Specific Reference Ranges. For more information see Policy Stat Procedure [place] High Sensitivity Troponin (TNIH) and attachments. Performed By: #### L 500.2500, L100.0100, L501.4020 #### [facility] [address] [place], [address] Encounters Encounter Date Encounter Type Care Provider Facility Start: 05-19-2022 End: 05-19-2022 Emergency department patient visit Gerson Chapa Facility:[facility] Payers Date Payer Category Payer Private Health Insurance [id number] 2022 Self-pay Unknown [id number] Summary Purpose Family History No Family History Records Found Advance Directives No Advanced Directives Records Found Additional Source Comments INFORMATION SOURCE (unrecogn ized section and content) DATE CREATED AUTHOR 05/25/2022 [facility] FOR RECORDS PERTAINING TO PATIENTS WHO ARE OR HAVE BEEN ENROLLED IN A CHEMICAL DEPENDENCY/SUBSTANCEABUSE PROGRAM, SOME INFORMATION MAY BE OMITTED. This clinical summary was aggregated from multiple sources. Caution should be exercised in using it in the provision of clinical care. This summary normalizes information from multiple sources, and as a consequence, information in this document may materially change the coding, format and clinical context of patient data. In addition, data may be omitted in some cases. CLINICAL DECISIONS SHOULD BE BASED ON THE PRIMARY CLINICAL RECORDS. [employer] provides no warranty or guarantee of the accuracy or completeness of information in this document.
[2025-02-12 16:47] LABS: Anion Gap 12 (5-15); BUN 16 mg/dL (4-19); BUN/Creat Ratio 33.0 RATIO (10-20); Calcium,Total 9.5 mg/dL (7.6-11.0); Carbon Dioxide 24.9 mmol/L (21.0-32.0); Chloride 107 mmol/L (98-108); Estimated Creatinine Clearance 127.29 ml/min (50-250); Glucose 123 mg/dL (70-99); Potassium 3.7 mmol/L (3.3-5.1)
[2025-02-12 16:50] LABS: Red Blood Cells-Urine 0-5 SEEN /hpf (0-5); Squamous Epithelial Cells - UA 0-5 SEEN /hpf (5-10)
[2025-02-12 17:18] VITALS: BP 156/77; PULSE 75; RESP 16; TEMP 36.8; O2SAT 98
== END 2025-02-12 17:23 | disposition home or self-care (01) ==
PROVIDERS: Emergency Provider Emergency Medicine; Visit Provider Emergency Medicine
DX: M54.9 Dorsalgia, unspecified (principal)
CPT/HCPCS: 74176; 80048; 81001; 85025; 96374; 99283